=== PATIENT | male | born 1990 | race Caucasian/White ===

== ENCOUNTER 2018-05-30 16:59 | Emergency (ER) | payer BC ==
[2018-05-30] MEDS ORDERED: HYDROmorphone 1 MG/ML Syringe IVPUSH ONE (17:05)
[2018-05-30] MEDS ORDERED: Sodium Chloride 0.9% 10 ML Syringe FLUSH PRN (17:05)
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
[2018-05-30] MEDS ORDERED: Propofol 200 MG/20 ML SDV ONE (18:05)
[2018-05-30] MEDS ORDERED: Midazolam 1 MG/ML 2 ML SDV ONE (18:06)
[2018-05-30] MEDS ORDERED: fentaNYL 100 MCG/2 ML SDV ONE (18:07)
[2018-05-30] MEDS ORDERED: Lactated Ringers 1,000 ML IV SCH (18:15)
--- NOTE | 2018-05-30 18:29 | PCM.PREANE ---
Preanesthetic Assessment - Anesthesia/Transfusion/Family Hx Anesthesia History: Prior Anesthesia Without Reaction Family History of Anesthesia Reaction: No Transfusion History: No Prior Transfusion(s) - Review of Systems General: No Symptoms Pulmonary: No Symptoms Cardiovascular: No Symptoms Gastrointestinal: No Symptoms Neurological: No Symptoms Other: Reports: None - Physical Assessment NPO Status Date: 05/30/18 NPO Status Time: 11:00 Pulse: 85 O2 Sat by Pulse Oximetry: 99 Respiratory Rate: 18 Blood Pressure: 127/70 Temperature: 36.3 C Vital Signs: Last Vital Signs Temp 36.6 C 05/30/18 17:04 Pulse 81 05/30/18 17:04 Resp 18 05/30/18 17:04 BP 127/70 05/30/18 17:04 Pulse Ox 99 05/30/18 17:04 Height: 1.93 m Weight: 108.862 kg ASA Class: 1E Mental Status: Alert & Oriented x3 Airway Class: Mallampati = 1 Dentition: Reports: Normal Dentition Thyro-Mental Finger Breadths: 3 Mouth Opening Finger Breadths: 3 ROM/Head Extension: Full Lungs: Clear to Auscultation, Normal Respiratory Effort Cardiovascular: Regular Rate, Regular Rhythm - Allergies Allergies/Adverse Reactions: Allergies Allergy/AdvReac Type Severity Reaction Status Date / Time Penicillins Allergy Cannot Verified 05/30/18 17:07 Remember - Blood Blood Available: No Product(s) Available: None - Anesthesia Plan Pre-Op Medication Ordered: None - Acknowledgements Anesthesia Type Planned: MAC Pt an Appropriate Candidate for the Planned Anesthesia: Yes Alternatives and Risks of Anesthesia Discussed w Pt/Guardian: Yes Pt/Guardian Understands and Agrees with Anesthesia Plan: Yes PreAnesthesia Questionnaire - Past Health History Medical/Surgical History: Denies Medical/Surgical History - SUBSTANCE USE Smoking Status *Q: Never Smoker Second Hand Smoke Exposure: No Recreational Drug Use History: No - HOME MEDS Home Medications: Home Meds . [No Known Home Meds] 05/30/18 [History] - CURRENT (IN HOUSE) MEDS Current Meds: Current Medications Lactated Ringer's (Ringers, Lactated) 1,000 mls @ 100 mls/hr IV ASDIRECTED FLORENTIN Sodium Chloride (Saline Flush) 10 ml FLUSH ASDIRECTED PRN PRN Reason: Keep Vein Open Last Admin: 05/30/18 17:16 Dose: 10 ml Discontinued Medications Fentanyl (Sublimaze) Confirm Administered Dose 100 mcg .ROUTE .STK-MED ONE Stop: 05/30/18 18:08 Hydromorphone HCl (Dilaudid) 1 mg IVPUSH ONETIME ONE Stop: 05/30/18 17:06 Last Admin: 05/30/18 17:10 Dose: 1 mg Midazolam HCl (Versed 1 Mg/Ml) Confirm Administered Dose 2 mg .ROUTE .STK-MED ONE Stop: 05/30/18 18:07 Propofol (Diprivan 20 Ml) Confirm Administered Dose 200 mg .ROUTE .STK-MED ONE Stop: 05/30/18 18:06
--- NOTE | 2018-05-31 07:11 | CR ---
Right shoulder: AP view of the right shoulder was obtained. Comparison: Prior right shoulder study performed earlier on the same day (5:21 PM). Previous dislocation has been reduced. No discrete fracture or other abnormality is seen. Impression: 1. Unremarkable AP right shoulder study. Diagnostic code #1
--- NOTE | 2018-05-31 07:11 | CR ---
Right shoulder: Two views of the right shoulder were obtained. Comparison: No previous study. Anterior subcoracoid dislocation is seen. No discrete fracture or other abnormality is appreciated. Impression: 1. Dislocated right shoulder as noted above. Diagnostic code #3
== END 2018-05-30 19:16 | disposition home or self-care (01) ==
LOC: JD.ED 16:59
DX: S43.004A Unspecified dislocation of right shoulder joint, initial encounter (principal); Z88.0 Allergy status to penicillin; W15.XXXA Fall from cliff, initial encounter
CPT/HCPCS: 23650; 73020; 73030; 96374; 99152; 99283; J1170; J2250; J2704; J3010; J7120

== ENCOUNTER → 2019-05-16 | Day surgery (SDC) | payer BC ==
[~2019-05-16] MED LIST: EPINEPHrine 1 MG/1 ML Amp SCH; EPINEPHrine 1 MG/ML 30 ML MDV SCH; HYDROmorphone 0.5 MG/0.5 ML Syringe IVPUSH PRN; Lactated Ringers 1,000 ML IV SCH; Lactated Ringers 1,000 ML ONE; Lidocaine 1% 6 ML ONE; Lidocaine 1%/Sod Bicarbonate in NS 8.4% 1 ML Syringe IDERM PRN; Midazolam 1 MG/ML 2 ML SDV ONE; Ondansetron 4 MG/2 ML SDV ONE; Propofol 200 MG/20 ML SDV ONE; Rocuronium 50 MG/5 ML Vial ONE; Ropivacaine 0.5% 5 MG/ML 30 ML SDV ONE; Sodium Chloride 0.9% 10 ML Syringe FLUSH PRN; ceFAZolin 1 GM Vial ONE; fentaNYL 100 MCG/2 ML SDV IVPUSH PRN; fentaNYL 100 MCG/2 ML SDV ONE
--- NOTE | 2019-05-16 11:50 | PCM.PREANE ---
Preanesthetic Assessment - Procedure Proposed Procedure: Rt shoulder arthroscopy - Anesthesia/Transfusion/Family Hx Anesthesia History: Prior Anesthesia Without Reaction Transfusion History: No Prior Transfusion(s) Intubation History: Unknown - Review of Systems General: No Symptoms Pulmonary: No Symptoms Cardiovascular: No Symptoms Gastrointestinal: No Symptoms Neurological: No Symptoms Other: Reports: None - Physical Assessment NPO Status Date: 05/15/19 NPO Status Time: 22:30 Vital Signs: Last Vital Signs Temp 97.8 F 05/16/19 11:05 Pulse 76 05/16/19 11:05 Resp 16 05/16/19 11:05 BP 141/75 H 05/16/19 11:05 Pulse Ox 98 05/16/19 11:05 Height: 1.93 m Weight: 120.656 kg ASA Class: 1 Mental Status: Alert & Oriented x3 Airway Class: Mallampati = 2 Dentition: Reports: Normal Dentition Thyro-Mental Finger Breadths: 4 Mouth Opening Finger Breadths: 4 ROM/Head Extension: Full Lungs: Clear to Auscultation, Normal Respiratory Effort Cardiovascular: Regular Rate, Regular Rhythm - Allergies Allergies/Adverse Reactions: Allergies Allergy/AdvReac Type Severity Reaction Status Date / Time Penicillins Allergy Rash Verified 05/15/19 14:25 - Acknowledgements Anesthesia Type Planned: General Anesthesia, Regional Block (interscalene) Pt an Appropriate Candidate for the Planned Anesthesia: Yes Alternatives and Risks of Anesthesia Discussed w Pt/Guardian: Yes Pt/Guardian Understands and Agrees with Anesthesia Plan: Yes PreAnesthesia Questionnaire - Past Health History Medical/Surgical History: Denies Medical/Surgical History Musculoskeletal History: Reports: Other (See Below) Other Musculoskeletal History: right humerus dislocation, right labral tear of shoulder, right wrist pain - Past Surgical History Head Surgeries/Procedures: Reports: None HEENT Surgical History: Reports: Tonsillectomy Cardiovascular Surgical History: Reports: None Respiratory Surgical History: Reports: None GI Surgical History: Reports: None Female Surgical History: Reports: None Male Surgical History: Reports: None Endocrine Surgical History: Reports: None Neurological Surgical History: Reports: None Musculoskeletal Surgical History: Reports: None Oncologic Surgical History: Reports: None Dermatological Surgical History: Reports: None - SUBSTANCE USE Smoking Status *Q: Never Smoker Days Per Week of Alcohol Use: 3 Number of Drinks Per Day: 3 Total Drinks Per Week: 9 Recreational Drug Use History: No - HOME MEDS Home Medications: Home Meds Multivitamin [Daily Multiple Vitamin] 1 tab PO DAILY 05/15/19 [History] Acetaminophen/HYDROcodone [[place] 325-5 MG] 1 - 2 tab PO Q6H PRN #30 tablet 05/16 [Rx] Cyclobenzaprine [Flexeril] 10 mg PO Q12H PRN #20 tab 05/16/19 [Rx] - CURRENT (IN HOUSE) MEDS Current Meds: Current Medications Epinephrine HCl (Adrenalin) 3 mg .XX ONETIME FLORENTIN Stop: 05/16/19 13:00 Lactated Ringer's (Ringers, Lactated) 1,000 mls @ 125 mls/hr IV ASDIRECTED FLORENTIN Stop: 05/16/19 23:00 Lidocaine/Sodium Bicarbonate (Buffered Lidocaine 1% In Ns 8.4%) 0.25 ml IDERM ONETIME PRN PRN Reason: Prior to IV Start Stop: 05/16/19 18:00 Sodium Chloride (Saline Flush) 10 ml FLUSH ASDIRECTED PRN PRN Reason: Keep Vein Open Stop: 05/16/19 18:00 Discontinued Medications Fentanyl (Sublimaze) Confirm Administered Dose 100 mcg .ROUTE .STK-MED ONE Stop: 05/16/19 11:22 Lidocaine HCl (Xylocaine-Mpf 1%) Confirm Administered Dose 6 mls @ as directed .ROUTE .STK-MED ONE Stop: 05/16/19 11:23 Midazolam HCl (Versed 1 Mg/Ml) Confirm Administered Dose 4 mg .ROUTE .STK-MED ONE Stop: 05/16/19 11:21 Ondansetron HCl (Zofran) Confirm Administered Dose 8 mg .ROUTE .STK-MED ONE Stop: 05/16/19 11:29 Propofol (Diprivan 20 Ml) Confirm Administered Dose 400 mg .ROUTE .STK-MED ONE Stop: 05/16/19 11:20 Rocuronium Clemons (Zemuron) Confirm Administered Dose 50 mg .ROUTE .STK-MED ONE Stop: 05/16/19 11:27 Ropivacaine (Naropin 0.5%) Confirm Administered Dose 30 ml .ROUTE .STK-MED ONE Stop: 05/16/19 11:34
--- NOTE | 2019-05-16 12:36 | PCM.PRNOTE ---
- Free Text/Narrative Note: Postoperative regional pain control requested by surgeon. Pre-op Dx: Right Biceps tendon tear Surgical procedure: Right shoulder arthroscopy with biceps tenodesis / tenotomy vs. labral tear repair Procedure: Right Interscalene block with U/S guidance Requesting physician: Dr. Javier Farris Risks and benefits discussed with the patient preoperatively including infection , bleeding, incomplete or failed block, possible nerve damage, local anesthetic toxicity. Chart reviewed, VS stable. Permit signed. Patient in preoperative room, stable , alert and awake. Time out performed at 12 :11. Oxygen 2L via NC. Right side of the neck was prepped with Chloraprep x 1 and allowed to dry. Midazolam IV 4 mg given. Under aseptic technique, the brachial plexus was identified under ultrasound prior to needle insertion. 2" Stimuplex needle #22 G was inserted under US guidance. Neuromuscular monitoring used during the procedure, forearm twitch elicited at 0.6 mA. Under direct visualization of needle tip the injection of 0.5% Ropivacaine with 1:200k epinephrine, total of 30 mls in divided doses, maintaining negative aspiration was completed without problems. No local anesthetic toxicity was noted. Patient is awake, stable and tolerated the procedure well. Please see the attached U/S images Time: 12:11 - 12:22 Date: 05/16/2019
--- NOTE | 2019-05-16 15:22 | PCM.POSTAN ---
POST ANESTHESIA ASSESSMENT - MENTAL STATUS Mental Status: Alert - VITAL SIGNS Vital Signs: Last Vital Signs Temp 97.2 F 05/16/19 15:15 Pulse 99 05/16/19 15:15 Resp 17 05/16/19 15:15 BP 151/70 H 05/16/19 15:15 Pulse Ox 98 05/16/19 15:15 - RESPIRATORY Respiratory Status: Respiratory Rate WNL, Airway Patent, O2 Saturation Stable, Supplemental Oxygen - CARDIOVASCULAR CV Status: Pulse Rate WNL, Blood Pressure Stable - GASTROINTESTINAL GI Status: No Symptoms - PAIN Pain Score: 0 (post ISB) - POST OP HYDRATION Hydration Status: Adequate & Stable
--- NOTE | 2019-05-20 16:06 | PCM.OPNOTE ---
- General Post-Op/Procedure Note Date of Surgery/Procedure: 05/16/19 Operative Procedure(s): right shoulder video arthroscopy with biceps tenotomy, extensive debridement and SLAP repair Pre Op Diagnosis: displaced SLAP tear of right shoulder Post-Op Diagnosis: Same Anesthesia Technique: General ET Tube, Regional Block Primary Surgeon: Javier García Anesthesia Provider: Julio Brown Ultrasound Technologist: Gianna Ayon EBL in mLs: 5 Complications: None Condition: Good
--- NOTE | 2019-05-20 16:43 | OR ---
DATE OF OPERATION: 05/16/2019 SURGEON: Javier García MD OPERATION PERFORMED: Right shoulder video arthroscopy with biceps tenotomy, extensive debridement and SLAP repair, and superior labral [id number] repair. PREOPERATIVE DIAGNOSIS: Displaced type 2 superior labral tear from anterior to posterior, right shoulder. POSTOPERATIVE DIAGNOSIS: Displaced type 2 superior labral tear from anterior to posterior, right shoulder. ANESTHESIA: General endotracheal intubation with regional interscalene block. ANESTHESIA PROVIDER: Mayra Vasques. SUPERVISOR [employer] DRESSING: Gianna Ayon PA-C ESTIMATED BLOOD LOSS: Less than 5 mL. COMPLICATIONS: None. CONDITION: Stable. DESCRIPTION OF PROCEDURE: The patient was identified in the preop holding area. Proper site was marked and identified by the surgeon. The patient was taken back to the operating theater, where after adequate anesthesia, the patient was placed in a lazy left lateral decubitus position. A bump was placed posteriorly. The patient's right upper extremity was then sterilely prepped and draped in the usual sterile fashion. OR-wide time-out was performed. The patient received 2 g IV Ancef and 10 pounds of traction was applied to the right upper extremity. Standard posterior incision was made. Scope trocar was introduced to the glenohumeral joint. With use of the spinal needle, anterior portal was then created. Cursory examination showed no rotator cuff tear, fraying, or tendinitis. Subscapularis tendon was intact. The patient was noted to have a severely displaced type 2 SLAP tear with complete tearing off the labrum of the superior portion. The patient's biceps tendon did show significant tendonitis and it did show that his biceps tendon was rubbing on the humeral head causing grade 1/2 chondromalacia on one area of the humeral head. The patient was noted also to have significant anterior capsular stripping near the inferior and superior portions part of the anterior labrum as well. At this time though, the labrum was just nowhere to be found. He had capsular stripping all the way down into the gutter. I did decide, at this time, secondary to the severity of the nature of his superior labral tear, that we plan on fixing the SLAP tear and then plan on doing a biceps tenotomy. Starting anteriorly, I was able to pass a FiberWire and Antelope wire. I was able to do four 2.9 mm Arthrex PushLock anchors for repair of the superior labrum, starting anterior at roughly the 2:30 position and then going just behind the biceps tendon posteriorly. They all had adequate bite, had adequate religious of the superior portion of the anterior labrum as well all the way posterior to the superior labrum posteriorly. I was able to probe it and it was found to have significant stability. I performed a biceps tenotomy. At this time, the patient had a lot of synovitis as well as loose bodies. So, at this time, I also did an extensive debridement of the synovitis that was in the joint as well as loose portions of the labrum. The rest of the bony surfaces showed no chondromalacia and the rest of the posterior labrum was intact. Excess saline was drained from the shoulder. 3-0 nylon simple suture was used for closure of the skin incision. The patient was placed in a sterile soft dressing and a pillow sling and sent to the PACU in stable condition. GERSON /[id number] JAVIER
== END | disposition home or self-care (01) ==
LOC: JD.SDS 10:38
PROVIDERS: ATTEND Orthopaedic Surgery
DX: S43.431A Superior glenoid labrum lesion of right shoulder, initial encounter (principal); M75.21 Bicipital tendinitis, right shoulder; M94.211 Chondromalacia, right shoulder; V86.92XA Unspecified occupant of snowmobile injured in nontraffic accident, initial encounter; Z88.0 Allergy status to penicillin
CPT/HCPCS: 29807; 29823; C1713; J0171; J0690; J2001; J2250; J2405; J2704; J2795; J3010; J7120; 01630; 64415

== ENCOUNTER 2020-08-02 17:47 | Emergency (ER) | payer BC ==
--- NOTE | 2020-08-02 18:39 | EDM.PDOC ---
ED HPI GENERAL MEDICAL PROBLEM - General Chief Complaint: Lower Extremity Injury/Pain Stated Complaint: LT FOOT/ANKLE PAIN Time Seen by Provider: 08/02/20 17:53 Source of Information: Reports: Patient, RN Notes Reviewed History Limitations: Reports: No Limitations - History of Present Illness INITIAL COMMENTS - FREE TEXT/NARRATIVE: Patient is a 29 year old male presenting to the ER with c/o pain and swelling to his left lower extremity for the last few days. He reports that he has been on his feet quite a bit lately and wears steel toe boots at work that may be too tight on the top of his foot. He noticed swelling to the top of his foot as well as his calf over his sock line. He has a bruise on the lateral aspect of he leg that he thinks he got from hitting on a trailer hitch. Denies any history of blood clots. He took ibuprofen for the pain with little relief. Denies the need for pain medications. Left Lower Leg Pain Score (Numeric/FACES): 6 - Related Data Allergies Allergy/AdvReac Type Severity Reaction Status Date / Time Penicillins Allergy Rash Verified 08/02/20 17:59 Home Meds: Home Meds . [No Known Home Meds] 08/02/20 [History] Past Medical History - Past Health History Medical/Surgical History: Denies Medical/Surgical History Cardiovascular History: Reports: None Respiratory History: Reports: None Gastrointestinal History: Reports: None Genitourinary History: Reports: None [employer] History: Reports: None Musculoskeletal History: Reports: Other (See Below) Other Musculoskeletal History: right humerus dislocation, right labral tear of shoulder, right wrist pain Neurological History: Reports: None Psychiatric History: Reports: None Endocrine/Metabolic History: Reports: None Hematologic History: Reports: None Immunologic History: Reports: None Oncologic (Cancer) History: Reports: None Dermatologic History: Reports: None - Past Surgical History Head Surgeries/Procedures: Reports: None HEENT Surgical History: Reports: Tonsillectomy Cardiovascular Surgical History: Reports: None Respiratory Surgical History: Reports: None GI Surgical History: Reports: None Male Surgical History: Reports: None Endocrine Surgical History: Reports: None Neurological Surgical History: Reports: None Musculoskeletal Surgical History: Reports: None Oncologic Surgical History: Reports: None Dermatological Surgical History: Reports: None Social & Family History - Tobacco Use Tobacco Use Status *Q: Never Tobacco User - Caffeine Use Caffeine Use: Reports: Coffee Review of Systems - Review of Systems Review Of Systems: See Below Constitutional: Reports: No Symptoms Eyes: Reports: No Symptoms Ears: Reports: No Symptoms Nose: Reports: No Symptoms Mouth/Throat: Reports: No Symptoms Respiratory: Reports: No Symptoms Cardiovascular: Reports: No Symptoms GI/Abdominal: Reports: No Symptoms Genitourinary: Reports: No Symptoms Musculoskeletal: Reports: Leg Pain (left lower foot, ankle, and lower extremity.) Skin: Reports: No Symptoms Neurological: Reports: No Symptoms Psychiatric: Reports: No Symptoms ED EXAM, GENERAL - Physical Exam Exam: See Below Exam Limited By: No Limitations General Appearance: Alert, WD/WN, No Apparent Distress Respiratory/Chest: No Respiratory Distress, Lungs Clear, Normal Breath Sounds, No Accessory Muscle Use, Chest Non-Tender Cardiovascular: Normal Peripheral Pulses, Regular Rate, Rhythm, No Edema, No Gallop, No JVD, No Murmur, No Rub Extremities: Other (Trace edema to left ankle and foot. Small area of ecchymosis to the left lateral calf. Pedal pulses +2. No redness or warmth.) Neurological: Alert, Oriented, CN II-XII Intact, Normal Cognition, Normal Gait, Normal Reflexes, No Motor/Sensory Deficits Psychiatric: Normal Affect, Normal Mood Course - Vital Signs Last Recorded V/S: Last Vital Signs Temp 97.6 F 08/02/20 17:55 Pulse 76 08/02/20 20:12 Resp 17 08/02/20 20:12 BP 142/87 H 08/02/20 20:12 Pulse Ox 98 08/02/20 20:12 - Re-Assessments/Exams Free Text/Narrative Re-Assessment/Exam: Patient is a 29-year-old male presenting to the emergency department with complaints of pain and swelling to his left foot and lower leg for the last 2 to 3 days. He denies any known injury to the area, however does have a small bruise to the lateral aspect of the leg. He thinks he may have bumped it on a trailer hitch. Also thinks maybe his shoe was too tight, but he is unsure. He took ibuprofen for pain with little relief, however he does deny the need for pain medications. Order venous Doppler ultrasound of the left lower extremity. 08/02/20 18:55 I have been notified that the patient did have an injury to the foot at the beginning of June but was never evaluated for it. We will also complete an x- ray of the left foot and ankle. 08/02/20 20:04 Ultrasound of the lower extremity shows no DVT. X-rays of the foot and ankle showed no abnormalities over the area of his discomfort. There is a very concerning for possible stress fracture over the fourth metatarsal, however patient has no pain in this area. CT would be required to further evaluate, but since he has no pain in this area, we will not complete that tonight. Solitario wrap has been applied. Recommend ice elevate and ibuprofen. If symptoms do not improve over the next few days, he should follow-up with Dr. García. Discharge instructions as documented. Departure - Departure Time of Disposition: 20:05 Disposition: Home, Self-Care 01 Condition: Good Clinical Impression: Lower extremity pain, left - Discharge Information *PRESCRIPTION DRUG MONITORING PROGRAM REVIEWED*: No *COPY OF PRESCRIPTION DRUG MONITORING REPORT IN PATIENT BRITTANY: No Instructions: Muscle Strain, [id number] Referrals: PCP,None [Primary Care Provider] - Forms: ED Department Discharge Additional Instructions: You were seen in the emergency department today for pain and swelling to your left foot and lower leg. Work-up included ultrasound and x-rays of the area. There is no abnormalities found. Do not have blood clots. There is no obvious fractures in the area where you are having pain. Solitario wrap has been applied to the area. Recommend ice and elevation as well as ibuprofen as needed for discomfort. If symptoms not improve over the next few days, recommend follow-up with orthopedist, Dr. García. Return to ER for any new or worsening symptoms of concern. Sepsis Event Note (ED) - Evaluation Sepsis Screening Result: No Definite Risk
--- NOTE | 2020-08-03 06:56 | CR ---
Left foot: 3 views of the left foot were obtained. Comparison: No prior left foot study is available. Joint spaces are preserved. No acute fracture, dislocation or other bony abnormality is appreciated. Impression: 1. Nothing acute is appreciated on left foot exam. Diagnostic code #1
--- NOTE | 2020-08-03 06:56 | CR ---
Left ankle: 3 views of the left ankle were obtained. Comparison: No prior left ankle study. Ankle mortise is symmetric. No acute fracture, dislocation or other bony abnormality is appreciated. Impression: 1. Nothing acute is seen on left ankle exam Diagnostic code #1
--- NOTE | 2020-08-03 07:26 | US ---
Left lower extremity deep venous ultrasound: Duplex and color Doppler evaluation was obtained of the left common femoral, proximal greater saphenous, superficial femoral, popliteal, posterior tibial and peroneal veins. Right common femoral vein was also evaluated. Comparison: No prior venous imaging is available. Findings: Normal phasic flow, augmentation and compression is seen. Impression: 1. No findings of deep venous thrombosis are seen within the left lower extremity or within the right common femoral vein. Diagnostic code #1 I agree with preliminary report from [facility], finalized on 08/02/20, 8:08 PM CDT, code #1
== END 2020-08-02 20:12 | disposition home or self-care (01) ==
LOC: JD.ED 17:47
DX: M79.81 Nontraumatic hematoma of soft tissue (principal)
CPT/HCPCS: 73610-26-LT; 73610-LT; 73630-26-LT; 73630-LT; 93971-26-LT; 93971-LT; 99283; 99284-25